=== PATIENT | female | born 1960 | race African-American/Black ===

== ENCOUNTER 2020-11-11 08:31 | Emergency (ER) | payer BC, OTHER ==
[~2020-11-11] VITALS: Ht 170.2 cm; Wt 90.9 kg
[2020-11-11] MEDS ORDERED: LIPI10TA PO (08:46)
[2020-11-11] MEDS ORDERED: AMLO1TAB25 PO (08:46)
[2020-11-11] MEDS ORDERED: LEXA1TAB2 PO (08:46)
[2020-11-11] MEDS ORDERED: ECOT325T7 PO (08:46)
[2020-11-11] MEDS ORDERED: BENZ200C70 PO (08:46)
[2020-11-11] MEDS ORDERED: TRES100I SC (08:46)
[2020-11-11] MEDS ORDERED: CHLO125TA PO (08:46)
[2020-11-11] MEDS ORDERED: LISI10TA4 PO (08:46)
[2020-11-11] MEDS ORDERED: NOVOINJ SC (08:46)
[2020-11-11] MEDS ORDERED: NS 1,000 ML IV ONE ×2 (09:15)
[2020-11-11] MEDS ORDERED: MORPHINE 4 MG/ML 1ML VIAL/SYRINGE (J2270) IV ONE (09:30)
[2020-11-11] MEDS ORDERED: METOCLOPRAMIDE INJ 10MG/2ML VIAL (J2765 PER 1) IV ONE (10:00)
--- NOTE | 2020-11-11 10:21 | REP ---
INDICATION: fall COMPARISON: None. TECHNIQUE: Axial noncontrast images from the skull base to the thoracic inlet with coronal reformations. This CT examination was performed using the following dose reduction techniques: Automated exposure control, adjustment of mA and/or kv according to the patient's size, and use of iterative reconstruction technique. FINDINGS: Age-related atrophy and microvascular ischemic changes are appreciated. The ventricles and sulci are symmetric. Wyman-white differentiation is maintained. There is no evidence for acute intracranial hemorrhage, mass/mass effect, pathology or infarction. No extra-axial fluid collection. Calvarium is intact. Paranasal sinuses and mastoid air cells are clear. IMPRESSION: Age related atrophy and microvascular ischemic changes. No acute intracranial pathology or trauma/injury. <Electronically signed by Uri Vizcaino > 11/11/20 1015
--- NOTE | 2020-11-11 10:22 | REP ---
INDICATION: fall COMPARISON: None. TECHNIQUE: Axial noncontrast images from the skull base to the thoracic inlet with coronal and sagittal re-formations This CT examination was performed using the following dose reduction techniques: Automated exposure control, adjustment of mA and/or kv according to the patient's size, and use of iterative reconstruction technique. FINDINGS: Alignment and lordosis maintained. Vertebral bodies are intact. No acute fracture/compression injury or subluxation. Spinal canal is patent. Paravertebral soft tissues are within normal limits. Moderate to advanced degenerative disc osteophyte complexes are appreciated primarily involving C4-5, C5-6, C6-7. Findings include osteophytosis, endplate sclerosis and disc space narrowing as well as mild facet arthropathy. IMPRESSION: 1. No acute fracture/compression injury or subluxation. 2. Moderate/advanced multilevel degenerative spondylosis. <Electronically signed by Uri Vizcaino > 11/11/20 1015
--- NOTE | 2020-11-11 10:24 | REP ---
INDICATION: fall COMPARISON: None. TECHNIQUE: Axial noncontrast images through the facial bones to include the mandible with coronal and sagittal re-formations. FINDINGS: The osseous structures are intact and there is no evidence for fracture or dislocation. Specifically, the bilateral zygomatic arches, nasal bones, and mandible including bilateral temporomandibular joints appear normal and symmetric. The sinuses and mastoid air cells are all well aerated and clear without fluid level to suggest occult trauma. The bilateral orbits including the globes and intraconal contents appear symmetric and normal. The surrounding soft tissues are grossly unremarkable. IMPRESSION: Normal maxillofacial CT. No evidence for acute pathology or trauma/injury. <Electronically signed by Uri Vizcaino > 11/11/20 [id number]
[2020-11-11] MEDS ORDERED: KETOROLAC 30 MG/ML 1ML VIAL IV ONE (10:45)
[2020-11-11] MEDS ORDERED: NS 1,000 ML IV SCH (10:57)
--- NOTE | 2020-11-11 10:59 | REP ---
INDICATION: pain after fall COMPARISON: None. TECHNIQUE: Frontal and Y-views of the right shoulder FINDINGS: Acute anteroinferior glenohumeral joint dislocation is appreciated. No obvious fracture identified. IMPRESSION: Acute anteroinferior glenohumeral joint dislocation. <Electronically signed by Uri Vizcaino > 11/11/20 [id number]
[2020-11-11] MEDS ORDERED: KETAMINE HCL 200 MG/20 ML VIAL IV ONE (11:00)
[2020-11-11] MEDS ORDERED: propofoL 200 MG/20 ML VIAL IV PRN (11:00)
--- NOTE | 2020-11-11 11:00 | REP ---
INDICATION: pain after fall COMPARISON: None. TECHNIQUE: Three views of the right humerus FINDINGS: Glenohumeral joint dislocation is appreciated. No obvious acute fracture. No subcutaneous emphysema or foreign body. IMPRESSION: Dislocation. No fracture. <Electronically signed by Uri Vizcaino > 11/11/20 [id number]
[2020-11-11] MEDS ORDERED: LIDOCAINE 1% MDV 20ML VIAL INFIL ONE (12:00)
--- NOTE | 2020-11-11 12:41 | REP ---
INDICATION: post reduction COMPARISON: None. TECHNIQUE: Two portable views of the right shoulder FINDINGS: Satisfactory reduction at the glenohumeral joint is appreciated. The acromioclavicular joint appears normal. No obvious acute fracture identified. Subacromial space is normal. Surrounding soft tissues are normal. IMPRESSION: Satisfactory reduction at the glenohumeral joints. <Electronically signed by Uri Vizcaino > 11/11/20 [id number]
[2020-11-11] MEDS ORDERED: NORC1TAB7 PO (13:07)
[2020-11-11] MEDS ORDERED: NORCO 5/325MG TABLET (BULK FOR ED) PO ONE (13:15)
[2020-11-11 13:45] VITALS: BP 125/55
[2020-11-11] MEDS ORDERED: NORCO, ANEXSIA 5/325MG TABLET (HYDROcodone/ACETAMINOPHEN) PO ONE (13:45)
== END 2020-11-11 13:59 | disposition home or self-care (01) ==
LOC: M ED 08:31
DX: S01.511A Laceration without foreign body of lip, initial encounter (principal); S43.004A Unspecified dislocation of right shoulder joint, initial encounter; S09.90XA Unspecified injury of head, initial encounter; M47.812 Spondylosis without myelopathy or radiculopathy, cervical region; R93.0 Abnormal findings on diagnostic imaging of skull and head, not elsewhere classified
CPT/HCPCS: 12011; 23655; 70450; 70486; 72125; 73020; 73030; 73060; 93041; 94760; 96374; 96375; 99285; J1885; J2270

== ENCOUNTER → 2021-10-17 | Outpatient (CLI) | payer BC, OTHER ==
[~2021-10-17] MED LIST: AMLO1TAB25 PO; BENZ200C70 PO; CHLO125TA PO; ECOT325T6 PO; GABA-282 PO; LEXA1TAB2 PO; LIPI10TA PO; LIPI20TA PO; LISI10TA22 PO; NORC1TAB7 PO; NOVOINJ SC; TIZA4CAP PO; TRES100I SC
== END ==
LOC: M WHC 09:21
PROVIDERS: ATTEND Nurse Practitioner Adult Health
DX: Z12.31 Encounter for screening mammogram for malignant neoplasm of breast (principal); R92.1 Mammographic calcification found on diagnostic imaging of breast

== ENCOUNTER → 2021-11-07 | Outpatient (CLI) | payer BC, OTHER ==
[~2021-11-07] MED LIST changes: -ECOT325T6 PO; +ECOT325T7 PO; -GABA-282 PO; -LIPI20TA PO; -TIZA4CAP PO
--- NOTE | 2021-11-07 14:12 | REP ---
INDICATION: RIGHT BREAST ADD VIEWS CALCS. COMPARISON: 10/17/2021, 12/22/2012. TECHNIQUE: Multiple magnification views right breast performed. FINDINGS: At 12 o'clock there is a cluster of pleomorphic microcalcifications which appears suspicious, stereotactic biopsy is recommended. More posteriorly there is another cluster of suspicious appearing pleomorphic microcalcifications, best seen in the mL and MLO projections. These calcifications are not as well visualized in the CC projection, but may be more lateral than the more anterior cluster. IMPRESSION: BIRADS/ACR category 4, suspicious. Two clusters of microcalcifications in the right breast for which stereotactic biopsy is recommended. One is more anteriorly located at 12 o'clock. The other is more posteriorly located and is best seen in the MLO and mL projections. This mammogram was interpreted with the aid of an FDA-approved computer-aided detection system. The patient letter being requested is M4. RECOMMENDATION: Recommend stereotactic biopsy of 2 clusters of microcalcifications in the right breast as discussed above. <Electronically signed by Bucky Wyman > 11/07/21 [id number]
== END ==
LOC: M WHC 12:17
PROVIDERS: ATTEND Nurse Practitioner Adult Health
DX: Z12.31 Encounter for screening mammogram for malignant neoplasm of breast (principal); R92.0 Mammographic microcalcification found on diagnostic imaging of breast
CPT/HCPCS: 77065; G0279

== ENCOUNTER → 2021-11-29 | Outpatient (CLI) | payer BC, OTHER ==
[~2021-11-29] MED LIST changes: +GABA-282 PO; +LIPI20TA PO; +TIZA4CAP PO
== END ==
LOC: M WHC 10:56
PROVIDERS: ATTEND Surgery
DX: R59.9 Enlarged lymph nodes, unspecified (principal)

== ENCOUNTER → 2022-03-09 | Outpatient (CLI) | payer BC, OTHER ==
[~2022-03-09] MED LIST changes: +ECOT325T6 PO; -ECOT325T7 PO
[2022-03-09 16:04] LABS: BLOOD UREA NITROGEN 12 MG/DL (7-18); CALCIUM LEVEL 9.7 MG/DL (8.8-10.2); CARBON DIOXIDE LEVEL 31 MEQ/L (21-32); CHLORIDE LEVEL 104 MEQ/L (98-107); CHOLESTEROL LEVEL 132 MG/DL (<200); CREATININE FOR GFR 0.72 MG/DL (0.55-1.30); GLOMERULAR FILTRATION RATE > 60.0 (>45); GLUCOSE, FASTING 118 MG/DL (70-100); HDL CHOLESTEROL 33 MG/DL (>40); LDL CHOLESTEROL 62 MG/DL (<100); NON-HDL-C 99 MG/DL; POTASSIUM SERUM 3.5 MEQ/L (3.5-5.1); SODIUM LEVEL 141 MEQ/L (136-145); TRIGLYCERIDES LEVEL 185 MG/DL (<150)
== END ==
LOC: M PLALAB 12:08
PROVIDERS: ATTEND Internal Medicine Endocrinology, Diabetes & Metabolism
DX: E11.65 Type 2 diabetes mellitus with hyperglycemia (principal)

== ENCOUNTER → 2022-04-20 | Outpatient (CLI) | payer BC, OTHER | LOC: M RAD 12:36 | PROVIDERS: ATTEND Nurse Practitioner Family | DX: Z12.2 Encounter for screening for malignant neoplasm of respiratory organs (principal); F17.210 Nicotine dependence, cigarettes, uncomplicated ==

== ENCOUNTER → 2022-04-30 | Outpatient (CLI) | payer BC, OTHER ==
[2022-04-30 17:21] LABS: BASO % 0.6 % (0.0-1.0); EOS # 0.1 10^3/uL (0.0-0.5); EOS % 1.2 % (0.0-3.0); HEMATOCRIT 46.6 % (36.0-47.0); HEMOGLOBIN 14.6 g/dl (12.0-15.5); INR 0.85; LYMPH # 2.7 10^3/uL (1.5-5.0); LYMPH % 52.9 % (24.0-44.0); MEAN CORPUSCULAR HGB CONC 31.3 g/dl (32.0-36.5); MEAN CORPUSCULAR VOLUME 89.4 fl (80.0-96.0); MONO # 0.4 10^3/uL (0.0-0.8); MONO % 8.2 % (2.0-8.0); NEUTROPHILS # 1.9 10^3/uL (1.5-8.5); NEUTROPHILS % 36.9 % (36.0-66.0); PLATELET COUNT, AUTOMATED 171 10^3/uL (150-450); RED BLOOD COUNT 5.21 10^6/uL (4.00-5.40)
[2022-04-30 17:23] LABS: PARTIAL THROMBOPLASTIN TIME 26.9 SECONDS (25.9-37.0)
[2022-04-30 17:36] LABS: ALBUMIN 3.6 GM/DL (3.2-5.2); ALT/SGPT 22 U/L (12-78); BILIRUBIN,TOTAL 0.3 MG/DL (0.2-1.0); BLOOD UREA NITROGEN 16 MG/DL (7-18); C REACTIVE PROTEIN QUANTITATIV 0.39 MG/DL (0.00-0.30); CALCIUM LEVEL 10.1 MG/DL (8.8-10.2); CARBON DIOXIDE LEVEL 32 MEQ/L (21-32); CHLORIDE LEVEL 105 MEQ/L (98-107); CREATININE FOR GFR 0.84 MG/DL (0.55-1.30); GLOMERULAR FILTRATION RATE > 60.0 (>45); GLUCOSE, FASTING 113 MG/DL (70-100); POTASSIUM SERUM 3.5 MEQ/L (3.5-5.1); SODIUM LEVEL 142 MEQ/L (136-145); TOTAL PROTEIN 7.1 GM/DL (6.4-8.2)
[2022-04-30 17:51] LABS: ERYTHROCYTE SEDIMENTATION RATE 12 mm/hr (0-30)
[2022-04-30 18:02] LABS: HEMOGLOBIN A1c 8.3 %
== END ==
LOC: M PLALAB 15:38
PROVIDERS: ATTEND Physician Assistant
DX: R51.9 Headache, unspecified (principal); R11.0 Nausea; Z88.9 Allergy status to unspecified drugs, medicaments and biological substances; E11.69 Type 2 diabetes mellitus with other specified complication; Z79.01 Long term (current) use of anticoagulants

== ENCOUNTER → 2022-05-09 | Outpatient (REF) | payer OTHER | LOC: M LAB REF 16:44 | PROVIDERS: ATTEND Nurse Practitioner Family | DX: E11.65 Type 2 diabetes mellitus with hyperglycemia (principal) ==

== ENCOUNTER → 2022-05-24 | Outpatient (CLI) | payer BC, OTHER, MEDICARE | LOC: M WHC 10:07 | PROVIDERS: ATTEND Surgery | DX: R59.0 Localized enlarged lymph nodes (principal); R92.8 Other abnormal and inconclusive findings on diagnostic imaging of breast | CPT/HCPCS: 76882; 77065; G0279 ==

== ENCOUNTER → 2022-09-03 | Outpatient (CLI) | payer MEDICARE, BC, OTHER | LOC: M LABSMTC 11:31 | PROVIDERS: ATTEND Anesthesiology | DX: Z01.812 Encounter for preprocedural laboratory examination (principal); Z20.822 Contact with and (suspected) exposure to COVID-19 ==

== ENCOUNTER → 2022-09-17 | Outpatient (CLI) | payer MEDICARE, BC, OTHER | LOC: M LABSMTC 09:53 | PROVIDERS: ATTEND Anesthesiology | DX: Z01.812 Encounter for preprocedural laboratory examination (principal); Z20.822 Contact with and (suspected) exposure to COVID-19 ==

== ENCOUNTER 2022-09-19 06:05 | Day surgery (SDC) | payer MEDICARE, BC, OTHER ==
[~2022-09-19] VITALS: Ht 170.2 cm; Wt 86.1 kg
[~2022-09-19 06:05] MED LIST changes: +LIDOCAINE 3.5 % 1ML OPHTH TOPICAL GEL OU ONE
[2022-09-19] MEDS ORDERED: mitoMYcin 0.2 MG/VIAL KIT FOR OPHTHALMIC USE (J7315 PER 0.2MG) As Ordered ONE (06:31)
[2022-09-19] MEDS ORDERED: TOBRADEX OPHTH OINT 3.5 GM As Ordered ONE ×2 (06:32→08:28)
[2022-09-19] MEDS ORDERED: POVIDONE-IODINE 5% OPHTH PREP SOL 30ML As Ordered ONE (06:32)
[2022-09-19] MEDS ORDERED: LIDOCAINE 2% W/EPINEPHRINE 20ML VIAL **PRES FREE As Ordered ONE (06:34)
[2022-09-19] MEDS ORDERED: LIDOCAINE 3.5 % 1ML OPHTH TOPICAL GEL OU ONE (07:00)
[2022-09-19] MEDS ORDERED: MIDAZOLAM INJ 2MG/2ML VIAL (J2250 PER 1MG) As Ordered ONE (07:03)
[2022-09-19 08:25] VITALS: BP 124/62
== END 2022-09-19 08:40 | disposition home or self-care (01) ==
LOC: M SDC 06:05
PROVIDERS: ATTEND Ophthalmology
DX: H40.1120 Primary open-angle glaucoma, left eye, stage unspecified (principal); I10 Essential (primary) hypertension; E78.5 Hyperlipidemia, unspecified; E11.9 Type 2 diabetes mellitus without complications; Z79.4 Long term (current) use of insulin; J44.9 Chronic obstructive pulmonary disease, unspecified; Z79.899 Other long term (current) drug therapy; F32.A Depression, unspecified
CPT/HCPCS: 66183; C1783; J2250; J7315

== ENCOUNTER → 2022-09-26 | Outpatient (CLI) | payer MEDICARE, BC, OTHER ==
[~2022-09-26] MED LIST changes: -LIDOCAINE 3.5 % 1ML OPHTH TOPICAL GEL OU ONE
== END ==
LOC: M LABSMTC 11:32
PROVIDERS: ATTEND Anesthesiology
DX: Z01.812 Encounter for preprocedural laboratory examination (principal); Z20.822 Contact with and (suspected) exposure to COVID-19

== ENCOUNTER 2022-10-01 10:29 | Day surgery (SDC) | payer MEDICARE, BC, OTHER ==
[~2022-10-01] VITALS: Ht 170.2 cm; Wt 85.7 kg
[~2022-10-01 10:29] MED LIST changes: +NS 1,000 ML IV ONE
[2022-10-01] MEDS ORDERED: propofoL 200 MG/20 ML VIAL As Ordered ONE (11:39)
[2022-10-01] MEDS ORDERED: LIDOCAINE 2% 100MG/5ML SDV (FOR ANES.) As Ordered ONE (11:39)
[2022-10-01] MEDS ORDERED: SIMETHICONE 40MG/0.6ML DROPS 30ML As Ordered ONE (12:12)
[2022-10-01 13:18] VITALS: BP 139/65
== END 2022-10-01 13:22 | disposition home or self-care (01) ==
LOC: M OPP 10:29
PROVIDERS: ATTEND Internal Medicine Gastroenterology
DX: Z12.11 Encounter for screening for malignant neoplasm of colon (principal); Z86.010 Personal history of colon polyps; Z80.0 Family history of malignant neoplasm of digestive organs; K63.5 Polyp of colon; K57.30 Diverticulosis of large intestine without perforation or abscess without bleeding; K64.4 Residual hemorrhoidal skin tags; K64.8 Other hemorrhoids; F17.200 Nicotine dependence, unspecified, uncomplicated; Z79.4 Long term (current) use of insulin; Z79.51 Long term (current) use of inhaled steroids; Z79.82 Long term (current) use of aspirin; Z79.899 Other long term (current) drug therapy; Z88.8 Allergy status to other drugs, medicaments and biological substances; J44.9 Chronic obstructive pulmonary disease, unspecified; I10 Essential (primary) hypertension; E78.00 Pure hypercholesterolemia, unspecified; E11.9 Type 2 diabetes mellitus without complications; Z80.42 Family history of malignant neoplasm of prostate

== ENCOUNTER → 2022-10-29 | Outpatient (CLI) | payer MEDICARE, BC, OTHER ==
[~2022-10-29] MED LIST changes: -NS 1,000 ML IV ONE
[2022-10-29 15:41] LABS: PLATELET COUNT, AUTOMATED 168 10^3/uL (150-450)
[2022-10-29 15:53] LABS: INR 0.86; PARTIAL THROMBOPLASTIN TIME 24.5 SECONDS (24.8-34.2); PROTHROMBIN TIME 11.9 SECONDS (12.5-14.5)
== END ==
LOC: M PLALAB 13:46
PROVIDERS: ATTEND Physician Assistant
DX: M47.896 Other spondylosis, lumbar region (principal)

== ENCOUNTER → 2022-11-06 | Outpatient (CLI) | payer MEDICARE, BC, OTHER | LOC: M CARPUL 12:40 | PROVIDERS: ATTEND Nurse Practitioner Adult Health | DX: R01.1 Cardiac murmur, unspecified (principal); I08.3 Combined rheumatic disorders of mitral, aortic and tricuspid valves ==

== ENCOUNTER → 2022-12-17 | Outpatient (CLI) | payer MEDICARE, BC, OTHER ==
[~2022-12-17] MED LIST changes: +ALBU90AE IH; +BRIM1OPD OU; +XALA0.007 OU
== END ==
LOC: M WHC 11:37
PROVIDERS: ATTEND Nurse Practitioner Women's Health
DX: R59.0 Localized enlarged lymph nodes (principal)

== ENCOUNTER → 2022-12-27 | Outpatient (CLI) | payer MEDICARE, BC, OTHER | LOC: M LABSMTC 11:18 | PROVIDERS: ATTEND Anesthesiology | DX: Z01.812 Encounter for preprocedural laboratory examination (principal); Z20.822 Contact with and (suspected) exposure to COVID-19 ==

== ENCOUNTER 2023-01-01 12:26 | Day surgery (SDC) | payer MEDICARE, BC, OTHER ==
[~2023-01-01] VITALS: Ht 170.2 cm; Wt 87.0 kg
[~2023-01-01 12:26] MED LIST changes: +NS 1,000 ML IV ONE
[2023-01-01] MEDS ORDERED: LIDOCAINE 2% 100MG/5ML SDV (FOR ANES.) As Ordered ONE (14:34)
[2023-01-01] MEDS ORDERED: propofoL 200 MG/20 ML VIAL As Ordered ONE (14:34)
[2023-01-01 15:07] VITALS: BP 119/71
== END 2023-01-01 15:58 | disposition home or self-care (01) ==
LOC: M OPP 12:26
PROVIDERS: ATTEND Internal Medicine Gastroenterology
DX: K22.89 Other specified disease of esophagus (principal); K29.70 Gastritis, unspecified, without bleeding; B96.81 Helicobacter pylori [H. pylori] as the cause of diseases classified elsewhere; Z80.0 Family history of malignant neoplasm of digestive organs; J44.9 Chronic obstructive pulmonary disease, unspecified; E11.9 Type 2 diabetes mellitus without complications; F17.200 Nicotine dependence, unspecified, uncomplicated; Z79.02 Long term (current) use of antithrombotics/antiplatelets; Z79.4 Long term (current) use of insulin; Z79.51 Long term (current) use of inhaled steroids; Z79.52 Long term (current) use of systemic steroids; Z79.82 Long term (current) use of aspirin; Z79.899 Other long term (current) drug therapy; Z88.0 Allergy status to penicillin; Z88.8 Allergy status to other drugs, medicaments and biological substances; Z80.42 Family history of malignant neoplasm of prostate

== ENCOUNTER → 2023-01-03 | Outpatient (CLI) | payer MEDICARE, OTHER ==
[~2023-01-03] MED LIST changes: +AMOX875T2 PO; +AZIT500T5; +BENZ-18; +CEFD300C PO; +MUCI600T31 PO; -NS 1,000 ML IV ONE; +PRED20TA PO; +PRED50TA; +PROM25TA12 PO
== END ==
LOC: M WHC 11:21
PROVIDERS: ATTEND Nurse Practitioner Family
DX: Z12.4 Encounter for screening for malignant neoplasm of cervix (principal); R87.610 Atypical squamous cells of undetermined significance on cytologic smear of cervix (ASC-US)

== ENCOUNTER → 2023-01-03 | Outpatient (CLI) | payer MEDICARE, BC, OTHER ==
[~2023-01-03] MED LIST changes: -AMOX875T2 PO; -AZIT500T5; -BENZ-18; -CEFD300C PO; -MUCI600T31 PO; -PRED20TA PO; -PRED50TA; -PROM25TA12 PO
[2023-01-03 15:55] LABS: HEPATITIS B SURFACE ANTIGEN NEGATIVE (NEGATIVE)
[2023-01-03 16:08] LABS: HIV 1&2 SCREEN CENTAUR NEGATIVE (NEGATIVE)
[2023-01-03 16:16] LABS: HEPATITIS B CORE ANTIBODY IGM NEGATIVE (NEGATIVE)
== END ==
LOC: M PLALAB 11:39
PROVIDERS: ATTEND Nurse Practitioner Family
DX: Z12.4 Encounter for screening for malignant neoplasm of cervix (principal); Z11.3 Encounter for screening for infections with a predominantly sexual mode of transmission

== ENCOUNTER → 2023-02-04 | Outpatient (CLI) | payer MEDICARE, BC, OTHER | LOC: M LABSMTC 10:43 | PROVIDERS: ATTEND Anesthesiology | DX: Z01.812 Encounter for preprocedural laboratory examination (principal); Z20.822 Contact with and (suspected) exposure to COVID-19 ==

== ENCOUNTER 2023-02-06 09:08 | Day surgery (SDC) | payer MEDICARE, BC, OTHER ==
[~2023-02-06] VITALS: Ht 170.2 cm; Wt 87.5 kg
[~2023-02-06 09:08] MED LIST changes: +BSS IRRIG/VANCO(10MG)/TOBRA(5MG)/EPINEPH(1:1000-0.5CC)500ML BAG-ORONLY IR ONE; +CYCLOPENTOLATE 1% OPHTH SOLN 2ML BTL OD SCH; +LIDOCAINE 1% SDV 5ML VIAL As Ordered ONE; +LIDOCAINE 3.5 % 1ML OPHTH TOPICAL GEL OU ONE; +OFLOXACIN 0.3 % (OCUFLOX) OPTH SOL 5ML OD ONE; +PHENYLEPHRINE 10% OPHTH SOL 5ML OD PRN; +PHENYLEPHRINE 2.5% OPHTH SOL 2ML OD SCH; +TROPICAMIDE 1% OPHTH SOLN 15ML OD SCH
[2023-02-06] MEDS ORDERED: MIDAZOLAM INJ 2MG/2ML VIAL As Ordered ONE (10:52)
[2023-02-06] MEDS ORDERED: fentaNYL 100 MCG/2 ML INJECTION As Ordered ONE (10:52)
[2023-02-06] MEDS ORDERED: CEFUROXIME 1MG/0.1ML INTRACAMERAL INJ As Ordered ONE (11:31)
[2023-02-06 12:11] VITALS: BP 170/75
== END 2023-02-06 12:40 | disposition home or self-care (01) ==
LOC: M SDC 09:08
PROVIDERS: ATTEND Ophthalmology
DX: H25.11 Age-related nuclear cataract, right eye (principal); E78.5 Hyperlipidemia, unspecified; E11.9 Type 2 diabetes mellitus without complications; K21.9 Gastro-esophageal reflux disease without esophagitis; I10 Essential (primary) hypertension; F32.A Depression, unspecified; J44.9 Chronic obstructive pulmonary disease, unspecified; F41.9 Anxiety disorder, unspecified; Z79.899 Other long term (current) drug therapy; Z88.8 Allergy status to other drugs, medicaments and biological substances
CPT/HCPCS: 66984; C1783; J0697; J2250; J3010; V2632

== ENCOUNTER 2023-02-24 09:58 | Emergency (ER) | payer MEDICARE, BC, OTHER ==
[~2023-02-24] VITALS: Ht 170.2 cm; Wt 90.6 kg
[~2023-02-24 09:58] MED LIST changes: -BSS IRRIG/VANCO(10MG)/TOBRA(5MG)/EPINEPH(1:1000-0.5CC)500ML BAG-ORONLY IR ONE; -CYCLOPENTOLATE 1% OPHTH SOLN 2ML BTL OD SCH; -LIDOCAINE 1% SDV 5ML VIAL As Ordered ONE; -LIDOCAINE 3.5 % 1ML OPHTH TOPICAL GEL OU ONE; -OFLOXACIN 0.3 % (OCUFLOX) OPTH SOL 5ML OD ONE; -PHENYLEPHRINE 10% OPHTH SOL 5ML OD PRN; -PHENYLEPHRINE 2.5% OPHTH SOL 2ML OD SCH; -TROPICAMIDE 1% OPHTH SOLN 15ML OD SCH
[2023-02-24] MEDS ORDERED: PRED50TA (10:15)
[2023-02-24] MEDS ORDERED: AZIT500T5 (10:15)
[2023-02-24] MEDS ORDERED: BENZ-18 (10:15)
[2023-02-24] MEDS ORDERED: methylPREDNISolone 125MG 2ML VIAL IV ONE (10:25)
[2023-02-24] MEDS: IPRATROPIUM 0.5MG/ALBUTEROL 2.5MG INH SOL UD 3ML (DUONEB) NEB SCH ×3 (11:02→11:48)
[2023-02-24 11:11] LABS: BASO % 0.5 % (0.0-1.0); EOS % 0.2 % (0.0-3.0); HEMOGLOBIN 13.9 g/dl (12.0-15.5); MEAN CORPUSCULAR HEMOGLOBIN 28.4 pg (27.0-33.0); MEAN CORPUSCULAR HGB CONC 32.3 g/dl (32.0-36.5); MEAN CORPUSCULAR VOLUME 87.8 fl (80.0-96.0); MONO # 0.4 10^3/uL (0.0-0.8); MONO % 5.7 % (2.0-8.0); NEUTROPHILS # 4.2 10^3/uL (1.5-8.5); NEUTROPHILS % 63.3 % (36.0-66.0); PLATELET COUNT, AUTOMATED 129 10^3/uL (150-450); WHITE BLOOD COUNT 6.7 10^3/uL (4.0-10.0)
[2023-02-24 11:30] LABS: BLOOD UREA NITROGEN 15 MG/DL (9-23); CALCIUM LEVEL 9.3 MG/DL (8.3-10.6); CARBON DIOXIDE LEVEL 31 MMOL/L (20-31); CHLORIDE LEVEL 100 MMOL/L (98-107); CREATININE FOR GFR 0.67 MG/DL (0.55-1.30); GLOMERULAR FILTRATION RATE > 60.0 (>45); GLUCOSE, FASTING 200 MG/DL (74-106); POTASSIUM SERUM 3.4 MMOL/L (3.5-5.1); SODIUM LEVEL 137 MMOL/L (136-145)
[2023-02-24] MEDS ORDERED: POTASSIUM CHLORIDE 10MEQ SR TABLET PO ONE (11:35)
[2023-02-24] MEDS ORDERED: ACETAMINOPHEN 500 MG TAB PO ONE (11:45)
[2023-02-24] MEDS ORDERED: PROM25TA12 PO (12:26)
[2023-02-24] MEDS ORDERED: AMOX875T2 PO (12:26)
[2023-02-24] MEDS ORDERED: PRED20TA PO (12:27)
[2023-02-24] MEDS ORDERED: MUCI600T31 PO (12:27)
[2023-02-24 12:38] VITALS: BP 136/65
[2023-02-24] MEDS ORDERED: CEFD300C PO (13:08)
== END 2023-02-24 12:40 | disposition home or self-care (01) ==
LOC: M ED 09:58
DX: J06.9 Acute upper respiratory infection, unspecified (principal); J44.9 Chronic obstructive pulmonary disease, unspecified; E11.9 Type 2 diabetes mellitus without complications; E78.5 Hyperlipidemia, unspecified; I10 Essential (primary) hypertension; F17.200 Nicotine dependence, unspecified, uncomplicated; Z79.82 Long term (current) use of aspirin; Z79.4 Long term (current) use of insulin; Z79.899 Other long term (current) drug therapy; Z88.8 Allergy status to other drugs, medicaments and biological substances
CPT/HCPCS: 71046; 80048; 85025; 87040; 87486; 87581; 87633; 87798; 93005; 94640; 96374; 99284; J2930

== ENCOUNTER → 2023-04-09 | Outpatient (CLI) | payer MEDICARE, BC, OTHER ==
[~2023-04-09] MED LIST changes: +AMOX875T2 PO; +AZIT500T5; +BENZ-18; +CEFD300C PO; +MUCI600T31 PO; +PRED20TA PO; +PRED50TA; +PROM25TA12 PO
[2023-04-09 11:38] LABS: HEMOGLOBIN A1c 7.9 % (4.0-6.0)
[2023-04-09 11:59] LABS: CREATININE, URINE 141.8 MG/DL
[2023-04-09 12:00] LABS: MAU/CREAT RATIO 181.2 MCG/MG (0.0-30.0)
[2023-04-09 12:06] LABS: ALBUMIN 3.7 G/DL (3.2-5.2); ALKALINE PHOSPHATASE 87 U/L (46-116); ALT/SGPT 29 U/L (7.0-40); AST/SGOT 19 U/L (<34); BILIRUBIN,TOTAL 0.4 MG/DL (0.3-1.2); BLOOD UREA NITROGEN 12 MG/DL (9-23); CALCIUM LEVEL 9.4 MG/DL (8.3-10.6); CARBON DIOXIDE LEVEL 32 MMOL/L (20-31); CHLORIDE LEVEL 105 MMOL/L (98-107); CHOLESTEROL LEVEL 157 MG/DL (<200); CHOLESTEROL RISK RATIO 4.08 (<5); GLOMERULAR FILTRATION RATE > 60.0 (>45); GLUCOSE, FASTING 109 MG/DL (74-106); HDL CHOLESTEROL 38.4 MG/DL (>40); LDL CHOLESTEROL 100.2 MG/DL (<100); NON-HDL-C 118.6 MG/DL; SODIUM LEVEL 141 MMOL/L (136-145); THYROID STIMULATING HORMONE 1.137 uIU/ML (0.55-4.78); TOTAL 25(OH) VITAMIN D 13.2 NG/ML (20.0-100.0); TOTAL PROTEIN 6.3 G/DL (5.7-8.2); TRIGLYCERIDES LEVEL 92 MG/DL (<150)
== END ==
LOC: M PLALAB 08:46
PROVIDERS: ATTEND Nurse Practitioner Adult Health
DX: E11.69 Type 2 diabetes mellitus with other specified complication (principal); Z79.899 Other long term (current) drug therapy

== ENCOUNTER → 2023-05-14 | Outpatient (REF) | payer MEDICARE, OTHER | LOC: M LAB REF 09:50 | PROVIDERS: ATTEND Internal Medicine Gastroenterology | DX: R11.0 Nausea (principal) ==

== ENCOUNTER → 2023-05-15 | Outpatient (CLI) | payer MEDICARE, BC, OTHER | LOC: M WHC 09:00 | PROVIDERS: ATTEND Nurse Practitioner Adult Health | DX: Z13.820 Encounter for screening for osteoporosis (principal); M85.851 Other specified disorders of bone density and structure, right thigh; M85.852 Other specified disorders of bone density and structure, left thigh ==

== ENCOUNTER → 2023-06-19 | Outpatient (CLI) | payer MEDICARE, BC, OTHER | LOC: M RAD 09:05 | PROVIDERS: ATTEND Nurse Practitioner Adult Health | DX: Z12.2 Encounter for screening for malignant neoplasm of respiratory organs (principal); F17.210 Nicotine dependence, cigarettes, uncomplicated; I25.10 Atherosclerotic heart disease of native coronary artery without angina pectoris; I70.0 Atherosclerosis of aorta; I51.7 Cardiomegaly ==

== ENCOUNTER → 2023-09-03 | Outpatient (CLI) | payer MEDICARE, BC, OTHER ==
[2023-09-03 16:36] LABS: ALBUMIN 4.1 G/DL (3.2-5.2); ALKALINE PHOSPHATASE 123 U/L (46-116); ALT/SGPT 25 U/L (7.0-40); AST/SGOT 17 U/L (<34); BILIRUBIN,TOTAL 0.4 MG/DL (0.3-1.2); BLOOD UREA NITROGEN 20 MG/DL (9-23); CALCIUM LEVEL 9.5 MG/DL (8.3-10.6); CARBON DIOXIDE LEVEL 29 MMOL/L (20-31); CHLORIDE LEVEL 97 MMOL/L (98-107); CREATININE FOR GFR 0.75 MG/DL (0.55-1.30); GLOMERULAR FILTRATION RATE > 60.0 (>45); GLUCOSE, FASTING 340 MG/DL (74-106); HEMOGLOBIN A1c 7.7 % (4.0-6.0); POTASSIUM SERUM 3.8 MMOL/L (3.5-5.1); SODIUM LEVEL 132 MMOL/L (136-145); TOTAL PROTEIN 7.4 G/DL (5.7-8.2)
== END ==
LOC: M PLALAB 12:26
PROVIDERS: ATTEND Nurse Practitioner Adult Health
DX: E11.69 Type 2 diabetes mellitus with other specified complication (principal)

== ENCOUNTER → 2023-10-22 | Outpatient (CLI) | payer MEDICARE, BC, OTHER ==
[2023-10-22 13:14] LABS: BLOOD UREA NITROGEN 14 MG/DL (9-23); CALCIUM LEVEL 9.3 MG/DL (8.3-10.6); CARBON DIOXIDE LEVEL 31 MMOL/L (20-31); CHLORIDE LEVEL 103 MMOL/L (98-107); CREATININE FOR GFR 0.76 MG/DL (0.55-1.30); GLOMERULAR FILTRATION RATE > 60.0 (>45); GLUCOSE, FASTING 114 MG/DL (74-106); POTASSIUM SERUM 3.6 MMOL/L (3.5-5.1); SODIUM LEVEL 139 MMOL/L (136-145)
== END ==
LOC: M PLALAB 07:11
PROVIDERS: ATTEND Internal Medicine Endocrinology, Diabetes & Metabolism
DX: E11.65 Type 2 diabetes mellitus with hyperglycemia (principal)

== ENCOUNTER → 2023-10-22 | Outpatient (CLI) | payer MEDICARE, BC, OTHER ==
[2023-10-22 13:14] LABS: ALBUMIN 3.8 G/DL (3.2-5.2); ALKALINE PHOSPHATASE 92 U/L (46-116); ALT/SGPT 21 U/L (7.0-40); AST/SGOT 15 U/L (<34); BILIRUBIN,TOTAL 0.5 MG/DL (0.3-1.2); BLOOD UREA NITROGEN 14 MG/DL (9-23); CALCIUM LEVEL 9.4 MG/DL (8.3-10.6); CARBON DIOXIDE LEVEL 29 MMOL/L (20-31); CHLORIDE LEVEL 105 MMOL/L (98-107); CHOLESTEROL LEVEL 168 MG/DL (<200); CHOLESTEROL RISK RATIO 4.34 (<5); CREATININE FOR GFR 0.72 MG/DL (0.55-1.30); GLOMERULAR FILTRATION RATE > 60.0 (>45); GLUCOSE, FASTING 115 MG/DL (74-106); HDL CHOLESTEROL 38.7 MG/DL (>40); LDL CHOLESTEROL 112.7 MG/DL (<100); NON-HDL-C 129.3 MG/DL; POTASSIUM SERUM 3.8 MMOL/L (3.5-5.1); SODIUM LEVEL 143 MMOL/L (136-145); TOTAL PROTEIN 6.5 G/DL (5.7-8.2); TRIGLYCERIDES LEVEL 83 MG/DL (<150)
== END ==
LOC: M PLALAB 07:08
PROVIDERS: ATTEND Nurse Practitioner Adult Health
DX: E11.69 Type 2 diabetes mellitus with other specified complication (principal); E78.2 Mixed hyperlipidemia; E11.65 Type 2 diabetes mellitus with hyperglycemia

== ENCOUNTER → 2024-01-15 | Outpatient (REF) | payer OTHER, MEDICARE, BC | LOC: M SFHCPLAZ 13:08 | PROVIDERS: ATTEND Nurse Practitioner Adult Health | DX: R39.15 Urgency of urination (principal) ==

== ENCOUNTER → 2024-01-22 | Outpatient (CLI) | payer OTHER | LOC: M PLAIMG 10:03 | PROVIDERS: ATTEND Physician Assistant | DX: M47.896 Other spondylosis, lumbar region (principal); M47.817 Spondylosis without myelopathy or radiculopathy, lumbosacral region; M48.061 Spinal stenosis, lumbar region without neurogenic claudication; M51.26 Other intervertebral disc displacement, lumbar region ==

== ENCOUNTER → 2024-04-01 | Outpatient (CLI) | payer MEDICARE, BC ==
[2024-04-01 14:03] LABS: HEMOGLOBIN A1c 7.6 % (4.0-6.0)
[2024-04-01 14:13] LABS: CREATININE, URINE 227.2 MG/DL
[2024-04-01 14:16] LABS: ALBUMIN 3.9 G/DL (3.2-5.2); ALKALINE PHOSPHATASE 116 U/L (46-116); ALT/SGPT 23 U/L (7.0-40); AST/SGOT 14 U/L (<34); BILIRUBIN,TOTAL 0.4 MG/DL (0.3-1.2); BLOOD UREA NITROGEN 15 MG/DL (9-23); CALCIUM LEVEL 9.7 MG/DL (8.3-10.6); CARBON DIOXIDE LEVEL 34 MMOL/L (20-31); CHLORIDE LEVEL 106 MMOL/L (98-107); CHOLESTEROL LEVEL 172 MG/DL (<200); CHOLESTEROL RISK RATIO 4.75 (<5); GLOMERULAR FILTRATION RATE > 60.0 (>45); GLUCOSE, FASTING 151 MG/DL (74-106); HDL CHOLESTEROL 36.2 MG/DL (>40); LDL CHOLESTEROL 116.2 MG/DL (<100); NON-HDL-C 135.8 MG/DL; SODIUM LEVEL 142 MMOL/L (136-145); TRIGLYCERIDES LEVEL 98 MG/DL (<150)
[2024-04-01 14:18] LABS: TOTAL 25(OH) VITAMIN D 12.8 NG/ML (20.0-100.0)
[2024-04-01 14:28] LABS: MAU/CREAT RATIO 238.9 MCG/MG (0.0-30.0)
== END ==
LOC: M PLALAB 10:08
PROVIDERS: ATTEND Nurse Practitioner Adult Health
DX: E11.69 Type 2 diabetes mellitus with other specified complication (principal); E78.2 Mixed hyperlipidemia; Z13.21 Encounter for screening for nutritional disorder; Z79.899 Other long term (current) drug therapy

== ENCOUNTER → 2024-04-06 | Outpatient (CLI) | payer MEDICARE, BC | LOC: M WHC 08:07 | PROVIDERS: ATTEND Nurse Practitioner Adult Health | DX: Z12.31 Encounter for screening mammogram for malignant neoplasm of breast (principal) ==

== ENCOUNTER → 2024-08-27 | Outpatient (CLI) | payer MEDICARE, BC ==
[~2024-08-27] MED LIST changes: -ALBU90AE IH; +ALBU90AE2 IH; +GABA-1172 PO; -GABA-282 PO
== END ==
LOC: M RAD 09:48
PROVIDERS: ATTEND Nurse Practitioner Adult Health
DX: Z12.2 Encounter for screening for malignant neoplasm of respiratory organs (principal); Z87.891 Personal history of nicotine dependence

== ENCOUNTER → 2024-09-29 | Outpatient (REF) | payer MEDICARE, BC ==
[~2024-09-29] MED LIST changes: +SEMA0.257 SQ
[2024-09-29 14:24] LABS: APPEARANCE, URINE CLEAR (CLEAR); BACTERIA, URINE AUTO 1+ (NEGATIVE); BILIRUBIN, URINE AUTO NEGATIVE (NEGATIVE); BLOOD, URINE BLOOD NEGATIVE (NEGATIVE); COLOR, URINE YELLOW (YELLOW); GLUCOSE, URINE (UA) AUTO NEGATIVE (NEGATIVE); KETONE, URINE AUTO NEGATIVE (NEGATIVE); LEUKOCYTE ESTERASE, URINE AUTO NEGATIVE (NEGATIVE); NITRITE, URINE AUTO NEGATIVE (NEGATIVE); PROTEIN, URINE AUTO NEGATIVE (NEGATIVE); RBC, URINE AUTO 9 /HPF (0-3); SPECIFIC GRAVITY URINE AUTO 1.013 (1.002-1.035); SQUAMOUS EPITHELIAL CELL UR AU 2 /HPF (0-6); WBC, URINE AUTO 0 /HPF (0-3)
== END ==
LOC: M SFHCPLAZ 13:35
PROVIDERS: ATTEND Student in an Organized Health Care Education/Training Program
DX: R30.0 Dysuria (principal)

== ENCOUNTER 2024-10-07 06:49 | Day surgery (SDC) | payer MEDICARE, BC ==
[~2024-10-07] VITALS: Ht 170.2 cm; Wt 82.0 kg
[2024-10-07] MEDS ORDERED: ALBUTEROL SULFATE 2.5MG/0.5ML INH NEB SOLN INH PRN (07:25)
[2024-10-07] MEDS ORDERED: fentaNYL 100 MCG/2 ML INJECTION As Ordered ONE (07:26)
[2024-10-07] MEDS ORDERED: MIDAZOLAM INJ 2MG/2ML VIAL As Ordered ONE (07:26)
[2024-10-07] MEDS: LIDOCAINE 3.5 % 1ML OPHTH TOPICAL GEL OU ONE (07:36)
[2024-10-07] MEDS ORDERED: LIDOCAINE 2% 100MG/5ML SDV (FOR ANES.) As Ordered ONE (07:39)
[2024-10-07] MEDS ORDERED: propofoL 200 MG/20 ML VIAL As Ordered ONE (07:39)
[2024-10-07] MEDS: POVIDONE-IODINE 5% OPHTH PREP SOL 30ML As Ordered ONE (08:35)
[2024-10-07] MEDS: LIDOCAINE 2% W/EPINEPHRINE 20ML VIAL **PRES FREE As Ordered ONE (08:41)
[2024-10-07] MEDS ORDERED: ONDANSETRON 4MG 2ML VIAL As Ordered ONE (08:45)
[2024-10-07] MEDS: CIPROFLOXACIN 0.3% OPHTH OINTMENT As Ordered ONE (08:55)
[2024-10-07 09:02] VITALS: BP 116/58; TEMP 97.1; O2SAT 97
== END 2024-10-07 09:23 | disposition home or self-care (01) ==
LOC: M SDC 06:49
PROVIDERS: ATTEND Ophthalmology
DX: H02.402 Unspecified ptosis of left eyelid (principal); E11.9 Type 2 diabetes mellitus without complications; I10 Essential (primary) hypertension; J44.9 Chronic obstructive pulmonary disease, unspecified; E78.00 Pure hypercholesterolemia, unspecified; K21.9 Gastro-esophageal reflux disease without esophagitis; Z79.899 Other long term (current) drug therapy; Z79.82 Long term (current) use of aspirin; F17.210 Nicotine dependence, cigarettes, uncomplicated; Z88.0 Allergy status to penicillin; Z88.8 Allergy status to other drugs, medicaments and biological substances; Z79.85 Long-term (current) use of injectable non-insulin antidiabetic drugs; Z98.42 Cataract extraction status, left eye
CPT/HCPCS: 67904; J2250; J2405; J3010

== ENCOUNTER → 2024-10-27 | Outpatient (CLI) | payer MEDICARE, BC | LOC: M PLAIMG 09:17 | PROVIDERS: ATTEND Nurse Practitioner Adult Health | DX: M53.3 Sacrococcygeal disorders, not elsewhere classified (principal) ==

== ENCOUNTER → 2024-12-09 | Outpatient (CLI) | payer MEDICARE, BC ==
[2024-12-09 13:16] LABS: ALBUMIN 3.9 G/DL (3.2-5.2); ALKALINE PHOSPHATASE 90 U/L (35-104); ALT/SGPT 16 U/L (7.0-40); AST/SGOT 12 U/L (<34); BILIRUBIN,TOTAL 0.4 MG/DL (0.3-1.2); BLOOD UREA NITROGEN 13 MG/DL (9-23); CALCIUM LEVEL 9.8 MG/DL (8.3-10.6); CARBON DIOXIDE LEVEL 30 MMOL/L (20-31); CHLORIDE LEVEL 100 MMOL/L (98-107); CHOLESTEROL LEVEL 157 MG/DL (<200); GLOMERULAR FILTRATION RATE > 60.0 (>45); GLUCOSE, FASTING 118 MG/DL (74-106); HDL CHOLESTEROL 36.5 MG/DL (>40); LDL CHOLESTEROL 97.3 MG/DL (<100); NON-HDL-C 120.5 MG/DL; POTASSIUM SERUM 3.7 MMOL/L (3.5-5.1); SODIUM LEVEL 140 MMOL/L (136-145); TOTAL PROTEIN 7.2 G/DL (5.7-8.2); TRIGLYCERIDES LEVEL 116 MG/DL (<150)
[2024-12-09 13:32] LABS: CREATININE, URINE 92.1 MG/DL; MAU/CREAT RATIO 322.4 MCG/MG (0.0-30.0)
[2024-12-09 14:53] LABS: HEMOGLOBIN A1c 6.2 % (4.0-6.0)
== END ==
LOC: M PLALAB 09:32
PROVIDERS: ATTEND Nurse Practitioner Adult Health
DX: E11.69 Type 2 diabetes mellitus with other specified complication (principal); E78.2 Mixed hyperlipidemia; E55.9 Vitamin D deficiency, unspecified

== ENCOUNTER → 2025-02-18 | Outpatient (CLI) | payer MEDICARE, BC | LOC: M OUTALCOH 08:32 | PROVIDERS: ATTEND Psychiatry & Neurology Psychiatry | DX: Z03.89 Encounter for observation for other suspected diseases and conditions ruled out (principal); F17.200 Nicotine dependence, unspecified, uncomplicated ==

== ENCOUNTER → 2025-06-08 | Outpatient (CLI) | payer MEDICARE, BC ==
[~2025-06-08] MED LIST changes: -BRIM1OPD OU; +BRIM5DRO25 OU; -PRED50TA; +PRED50TA57
[2025-06-08 10:52] LABS: ALT/SGPT 23 U/L (7.0-40); AST/SGOT 17 U/L (<34); CALCIUM LEVEL 9.5 MG/DL (8.3-10.6); CARBON DIOXIDE LEVEL 33 MMOL/L (20-31); CHLORIDE LEVEL 102 MMOL/L (98-107); CHOLESTEROL LEVEL 161 MG/DL (<200); CHOLESTEROL RISK RATIO 4.23 (<5); CREATININE FOR GFR 0.74 MG/DL (0.55-1.30); GLOMERULAR FILTRATION RATE > 90.0 (>45); LDL CHOLESTEROL 104.2 MG/DL (<100); NON-HDL-C 123.0 MG/DL; POTASSIUM SERUM 3.7 MMOL/L (3.5-5.1); SODIUM LEVEL 143 MMOL/L (136-145); TRIGLYCERIDES LEVEL 94 MG/DL (<150)
[2025-06-08 11:09] LABS: CREATININE, URINE 98.9 MG/DL; MALB URINE SIEMENS 143.0 MG/L; MAU/CREAT RATIO 144.5 MCG/MG (0.0-30.0)
[2025-06-08 11:30] LABS: ESTIMATED AVERAGE GLUCOSE 128.0 MG/DL (60-110)
== END ==
LOC: M PLALAB 07:59
PROVIDERS: ATTEND Nurse Practitioner Adult Health
DX: E11.69 Type 2 diabetes mellitus with other specified complication (principal); E55.9 Vitamin D deficiency, unspecified; E78.2 Mixed hyperlipidemia

== ENCOUNTER → 2025-07-08 | Outpatient (CLI) | payer MEDICARE, BC | LOC: M WHC 09:12 | PROVIDERS: ATTEND Nurse Practitioner Adult Health | DX: Z12.31 Encounter for screening mammogram for malignant neoplasm of breast (principal); R92.323 Mammographic fibroglandular density, bilateral breasts; R92.8 Other abnormal and inconclusive findings on diagnostic imaging of breast ==

== ENCOUNTER → 2025-07-15 | Outpatient (CLI) | payer MEDICARE, BC | LOC: M WHC 08:09 | PROVIDERS: ATTEND Nurse Practitioner Adult Health | DX: R92.8 Other abnormal and inconclusive findings on diagnostic imaging of breast (principal) | CPT/HCPCS: 77065; G0279 ==

== ENCOUNTER → 2025-09-01 | Outpatient (CLI) | payer MEDICARE, BC | LOC: M PLAIMG 07:15 | PROVIDERS: ATTEND Nurse Practitioner Adult Health | DX: R01.1 Cardiac murmur, unspecified (principal) ==

== ENCOUNTER 2025-09-29 05:55 | Day surgery (SDC) | payer MEDICARE, BC ==
[~2025-09-29] VITALS: Ht 170.2 cm; Wt 78.9 kg
[~2025-09-29 05:55] MED LIST changes: +NETA2.5D2 OU; +VYZU0.02 OU
[2025-09-29] MEDS: LIDOCAINE 3.5% 1 ML OPHTH TOPICAL GEL OU ONE (06:30)
[2025-09-29] MEDS: LIDOCAINE 1% SDV 5 ML VIAL As Ordered ONE (06:38)
[2025-09-29] MEDS ORDERED: MIDAZOLAM INJ 2 MG/2 ML VIAL As Ordered ONE (07:35)
[2025-09-29] MEDS: LIDOCAINE 2% W/EPINEPHrine 20 ML VIAL **PRES FREE As Ordered ONE (09:08)
[2025-09-29] MEDS: TOBRADEX OPHTH OINT 3.5 GM As Ordered ONE (09:46)
[2025-09-29 10:04] VITALS: BP 140/84; TEMP 98.1; O2SAT 98
[2025-09-29] MEDS: CYCLOPENTOLATE 1% OPHTH SOLN 2 ML BTL OS ONE (10:17)
== END 2025-09-29 10:36 | disposition home or self-care (01) ==
LOC: M SDC 05:55
PROVIDERS: ATTEND Ophthalmology
DX: H40.1122 Primary open-angle glaucoma, left eye, moderate stage (principal); E11.9 Type 2 diabetes mellitus without complications; I10 Essential (primary) hypertension; J44.9 Chronic obstructive pulmonary disease, unspecified; E78.00 Pure hypercholesterolemia, unspecified; Z79.899 Other long term (current) drug therapy; Z79.82 Long term (current) use of aspirin; Z79.85 Long-term (current) use of injectable non-insulin antidiabetic drugs; Z79.51 Long term (current) use of inhaled steroids; F17.210 Nicotine dependence, cigarettes, uncomplicated; Z98.42 Cataract extraction status, left eye; K21.9 Gastro-esophageal reflux disease without esophagitis; Z88.8 Allergy status to other drugs, medicaments and biological substances; Z88.0 Allergy status to penicillin
CPT/HCPCS: 66183; C1783; J2250; J3010; J7315

== ENCOUNTER → 2025-10-11 | Outpatient (CLI) | payer MEDICARE, BC | LOC: M RAD 14:58 | PROVIDERS: ATTEND Nurse Practitioner Adult Health | DX: Z87.891 Personal history of nicotine dependence (principal) ==

== ENCOUNTER → 2025-10-27 | Outpatient (CLI) | payer MEDICARE, BC ==
[2025-10-27 14:10] LABS: ALT/SGPT 33 U/L (7.0-40); AST/SGOT 22 U/L (<34); CALCIUM LEVEL 9.2 MG/DL (8.3-10.6); CARBON DIOXIDE LEVEL 33 MMOL/L (20-31); CHLORIDE LEVEL 100 MMOL/L (98-107); CREATININE FOR GFR 0.67 MG/DL (0.55-1.30); GLOMERULAR FILTRATION RATE > 90.0 (>45); POTASSIUM SERUM 3.7 MMOL/L (3.5-5.1); SODIUM LEVEL 136 MMOL/L (136-145)
[2025-10-27 14:51] LABS: ESTIMATED AVERAGE GLUCOSE 166.0 MG/DL (60-110)
== END ==
LOC: M PLALAB 09:56
PROVIDERS: ATTEND Nurse Practitioner Adult Health
DX: E11.69 Type 2 diabetes mellitus with other specified complication (principal); E55.9 Vitamin D deficiency, unspecified